=== PATIENT | female | born 1940 | race Caucasian/White ===

== ENCOUNTER → 2020-09-17 | Outpatient (CLI) | payer MEDICARE | LOC: NC 17:18 | PROVIDERS: ATTEND Family Medicine | DX: I48.91 Unspecified atrial fibrillation (principal); D64.9 Anemia, unspecified ==

== ENCOUNTER → 2020-10-08 | Outpatient (CLI) | payer MEDICARE | LOC: NC 13:27 | PROVIDERS: ATTEND Family Medicine | DX: I50.9 Heart failure, unspecified (principal); Z79.01 Long term (current) use of anticoagulants ==

== ENCOUNTER → 2020-12-31 | Outpatient (CLI) | payer MEDICARE | LOC: NC 11:25 | PROVIDERS: ATTEND Family Medicine | DX: I11.0 Hypertensive heart disease with heart failure (principal); I50.9 Heart failure, unspecified; E11.40 Type 2 diabetes mellitus with diabetic neuropathy, unspecified; J44.9 Chronic obstructive pulmonary disease, unspecified ==